=== PATIENT | female | born 1995 | race Two or more races ===

== ENCOUNTER 2019-10-25 13:09 | Emergency (ER) | payer MEDICAID, OTHER ==
[~2019-10-25] VITALS: Ht 165.1 cm; Wt 54.0 kg
[2019-10-25 13:38] VITALS: BP 142/85
== END 2019-10-25 16:06 | disposition home or self-care (01) ==
LOC: EDBD 13:09 → ER 13:13
DX: T78.40XA Allergy, unspecified, initial encounter (principal); R06.02 Shortness of breath; R10.9 Unspecified abdominal pain; Z91.02 Food additives allergy status; X58.XXXA Exposure to other specified factors, initial encounter